=== PATIENT | female | born 1945 | race Caucasian/White ===

== ENCOUNTER 2018-10-06 09:22 | Inpatient (IN) | payer OTHER, MEDICAID ==
[~2018-10-06] VITALS: Ht 165.1 cm; Wt 63.5 kg
[2018-10-06] MEDS ORDERED: NORVASC5 MG PO (10:01)
[2018-10-06] MEDS ORDERED: ARICEPT23 MG PO (10:01)
[2018-10-06] MEDS ORDERED: NAMENDA XR7 MG PO (10:01)
[2018-10-06] MEDS ORDERED: ZOLOFT50 MG PO (10:01)
[2018-10-06] MEDS ORDERED: FLUTICASONE PRO16 GM NASAL (10:02)
[2018-10-06] MEDS ORDERED: VITAMIN D250000 UNIT PO (10:02)
--- NOTE | 2018-10-06 10:20 | NUR ---
Pt's adult diaper saturated upon arrival. Pt was changed and cleaned. Wet linen was removed. Dry blue pads placed beneath pt, and dry adult diaper placed on pt. Pt has redness to coccyx and groin area.
[2018-10-06 10:40] LABS: BASOPHILS 0.1 % (0-2); EOSINOPHILS 0.1 % (0-7); HEMATOCRIT 37.7 % (36.0-48.0); HEMOGLOBIN 12.5 g/dL (12-16); IMMATURE GRANULOCYTES 0.2 % (0-5); LYMPHOCYTES 8.8 % (15-50); MCH 30.9 pg (26.0-34.0); MCHC 33.2 g/dL (31.0-37.0); MCV 93.3 fL (80.0-100.0); MEAN PLATELET VOLUME 11.2 fL (7.4-10.4); MONOCYTES 4.7 % (2-11); NEUTROPHILS 86.1 % (40-80); PLATELET COUNT 217 10x3/uL (130-400); RBC 4.04 10x6/uL (4.00-5.40)
[2018-10-06 11:01] LABS: APPEARANCE CLEAR (CLEAR); COLOR YELLOW (YELLOW); GLUCOSE NEGATIVE (NEGATIVE); KETONE NEGATIVE (NEGATIVE); NITRITE NEGATIVE (NEGATIVE); PROTEIN TRACE mg/dL (NEGATIVE); UROBILINOGEN NORMAL (NORMAL)
[2018-10-06 11:02] LABS: BILIRUBIN NEGATIVE (NEGATIVE)
[2018-10-06 11:03] LABS: BACTERIA FEW /hpf (NONE SEEN); RED CELLS - URINE 0-5 /hpf (0-5); WHITE CELLS - URINE 0-5 /hpf (0-5)
[2018-10-06 11:09] LABS: ALBUMIN 2.8 g/dL (3.4-5.0); ANION GAP 16.6 mmol/L (8-16); BILIRUBIN - TOTAL 0.36 mg/dL (0.2-1.3); CALCIUM 8.1 mg/dL (8.5-10.1); CARBON DIOXIDE 23.9 mmol/L (21.0-32.0); POTASSIUM - SERUM 3.5 mmol/L (3.5-5.1)
[2018-10-06 11:13] LABS: THYROID STIMULATING HORMONE 1.62 uIU/mL (0.36-3.74)
--- NOTE | 2018-10-06 11:23 | NUR ---
Pt resting with family at bedside. Pt respirations even and unlabored. Pt shows no signs of distress at this time.
--- NOTE | 2018-10-06 12:45 | MORECARE ---
CASE MANAGEMENT DISCHARGE SUMMARY PATIENT: ISIDRA EDMOND UNIT: [id number] ADM DATE: 10/06/18 AGE: 73 : 43 SEX: F ROOM/BED: D.2224 AUTHOR: NAEL CASTILLO PHYSICIAN: REFERRING PHYSICIAN: RADHA ORTEGA MD DATE OF SERVICE: 10/06/18 Discharge Plan Patient Name: ISIDRA EDMOND Facility: [facility]:[place] : 1945 Planned Disposition: Home Anticipated Discharge Date: 10/09/18 Discharge Date: Expected LOS: 3 Initial Reviewer: [email or web address] Initial Review Date: 10/06/2018 Generated: 10/06/18 1:45 pm Patient Name: ISIDRA EDMOND Page 96666 at 1245 All edits/amendments must be made on the electronic document DICTATION DATE: 10/06/18 1245 ARMATURE AND ROTOR WINDER: EZEQUIEL 10/06/18 1245 RPT#: [id number] DC DATE: STATUS: ADM IN [facility] [address] [place] [address] END OF REPORT
--- NOTE | 2018-10-06 12:45 | NUR ---
Siomara completed at 1235.
--- NOTE | 2018-10-06 12:53 | MORECARE ---
CASE MANAGEMENT DISCHARGE SUMMARY PATIENT: ISIDRA BAILEY UNIT: [id number] ADM DATE: 10/06/18 AGE: 73 : 43 SEX: F ROOM/BED: D.2224 AUTHOR: NAEL CASTILLO PHYSICIAN: REFERRING PHYSICIAN: RADHA ORTEGA MD DATE OF SERVICE: 10/06/18 Discharge Plan Patient Name: ISIDRA BAILEY Facility: [facility]:[place] : 1945 Planned Disposition: Home Anticipated Discharge Date: 10/09/18 Discharge Date: Expected LOS: 3 Initial Reviewer: [email or web address] Initial Review Date: 10/06/2018 Generated: 10/06/18 1:52 pm DCP- Discharge Planning Updated by [email or web address]: Vonnie Meadows on 10/06/18 11:[address] Patient Name: ISIDRA BAILEY Admission Status: ER Accout number: [id number] Admission Date: 10-06-2018 : 1945 Admission Diagnosis: Attending: RADHA CARRANZA Current LOS: 1 Anticipated DC Date: 10-09-2018 Planned Disposition: Home Primary Insurance: MEDICARE PART A ONLY Discharge Planning Comments: CM met with patient, spouse, cg, and multiple other family members to complete initial dc planning assessment. CM educated them all on the CM role and verbal consent given by patient to complete assessment. Patient lives at home with her . She has a cg provided by [employer] that lives with the patient 08/03. The cg's name is Rima Olvera @ [phone]. At discharge the patient will return home with her and her live in . Spouse and other family members feels this is a safe discharge. Patient has alzheimers but her mental status was worse then usual this morning. They reported the patient is seen by [facility] as well. No other community resources. CM discussed availability of home health, rehab services, and medical equipment. Family denied known discharge needs at this time. CM will continue to follow and will assist as needed with dc plans/needs. Applications Packager: Vonnie Meadows RN, [facility] DCPIA - Discharge Planning Initial Assessment Updated by [email or web address]: Vonnie Meadows on 10/06/18 12:45 pm * Is the patient Alert and Oriented? No * PCP Dr. Robles * Pharmacy [facility] * Preadmission Environment Home with Family * ADLs Partial Dependent * Partial ADLs (Assistance needed) Ambulation Bathing Dressing Medication Management Toileting Transfers * Equipment Bedside [facility] Bed Rolling Walker Wheelchair * List name and contact numbers for known caregivers / representatives who currently or will assist patient after discharge: Jesus Bailey - [facility] [place] [phone] Rima Esparza - 08/03 live in [facility] [phone] * Verbal permission to speak to the caregivers and representatives has been obtained from the patient. Yes * Community resources currently utilized Other Private Duty Care * Please name any agencies selected above. [facility] [place] - Employer of [employer]ima who provides the 08/03 care. * Additional services required to return to the preadmission environment? No * Can the patient safely return to the preadmission environment? Yes * Has this patient been hospitalized within the prior 30 days at any hospital? No Last DP export: 10/06/18 11:45 a Patient Name: ISIDRA BAILEY Page 69894 at 1253 All edits/amendments must be made on the electronic document DICTATION DATE: 10/06/181251 SUPERINTENDENT GENERAL: EZEQUIEL 10/06/181251 RPT#: [id number] DC DATE: STATUS: ADM IN [facility] [address] [place] [address] END OF REPORT
--- NOTE | 2018-10-06 13:10 | NUR ---
PT TRANSPORTED TO FLOOR WITH ISOLATION PRECAUTION DUE TO PT BEING TX FOR FLU. NOTE PT FLU SWAB WAS NEGATIVE, HOWEVER SINCE BEING TX FOR FLU FOLLOWED ISOLATION PROTOCOL WITH MASK AND GOWN ON PT. NURSE NOTIFIED OF THIS AT REPORT AND TRANSPORT.
--- NOTE | 2018-10-06 13:32 | NUR ---
ARRIVED TO ROOM 2224 VIA STRETCHER AWAKE AND ALERT TO NAME ONLY. RESP EVEN AND UNLABORED WITH 02 IN USE VIA N/C. NO PAIN OR DISCOMFORT NOTED OR VOICED. INCONT OF BOWEL AND BLADDER. MEDIUM BM NOTED. PT UNABLE TO WORK CALL LIGHT SYSTEM HAS AQUATICS COORDINATOR AT BEDSIDE. C/L IN REACH.
[2018-10-06 17:11] VITALS: BP 133/66
--- NOTE | 2018-10-06 19:30 | NUR ---
ADMISSION ASSESSMENT COMPLETED CAREGIVER AT BEDSIDE, PT UNABLE TO ANSWER QUESTIONS DUE TO MENTAL STATUS, BLIND ABLE TO FOLLOW SOME COMMANDS, IV INFUSING WITHOUT DIFFICULTY O2 VIA N/C AT 2 L, RESP UNLABOARED LUNGS DEMINISHED, INCONTIENT OF BOWEL AND BLADDER BED CHANGED, CALL LIGHT IN REACH
[2018-10-06 20:00] VITALS: BP 151/72
[2018-10-06 23:21] VITALS: BP 133/66; BMI 23.3
[2018-10-07] VITALS: BP 167/87
[2018-10-07 04:00] VITALS: BP 133/63
[2018-10-07 07:15] LABS: HEMATOCRIT 34.7 % (36.0-48.0); HEMOGLOBIN 11.8 g/dL (12-16); LYMPHOCYTES 7.5 % (15-50); MCH 31.4 pg (26.0-34.0); MCV 92.3 fL (80.0-100.0); NEUTROPHILS 91.5 % (40-80); PLATELET COUNT 183 10x3/uL (130-400); RBC 3.76 10x6/uL (4.00-5.40); RDW 12.6 % (11.5-14.5); WBC 8.3 10x3/uL (4.8-10.8)
[2018-10-07 07:30] LABS: ALBUMIN 2.4 g/dL (3.4-5.0); ANION GAP 14.6 mmol/L (8-16); BILIRUBIN - TOTAL 0.32 mg/dL (0.2-1.3); CALCIUM 7.9 mg/dL (8.5-10.1); CARBON DIOXIDE 24.6 mmol/L (21.0-32.0); CREATININE - SERUM 0.8 mg/dL (0.6-1.3); MAGNESIUM - SERUM 1.7 mg/dL (1.8-2.4); POTASSIUM - SERUM 3.2 mmol/L (3.5-5.1); PROTEIN - SERUM 6.5 g/dL (6.4-8.2)
[2018-10-07 08:40] VITALS: BP 139/59
--- NOTE | 2018-10-07 09:53 | NUR ---
Rehab Note- Acute Inpatient Rehab prescreen order received. The patient has pending PT & ST Evals. WIll follow and visit with the patient & family at this time. Thank you for this referral! More Amin RN CLinical Liaison, [facility] Rehab
[2018-10-07 12:50] VITALS: BP 120/50
[2018-10-07 13:49] VITALS: Ht 165.1 cm; Wt 63.5 kg
[2018-10-07 17:48] VITALS: BP 135/64
--- NOTE | 2018-10-07 18:45 | NUR ---
PATIENT IN BED WITH EYES OPEN AND NO COMPLAINTS OR SIGNS OF DISTRESS AT THIS TIME. IV INTACT. CALL LIGHT WITHIN REACH.
--- NOTE | 2018-10-07 19:15 | NUR ---
RECEIVED CARE FROM DAY NURSE. LYING IN BED WITH GAS STATION SUPERVISOR AT SIDE. NO NEEDS VOICED AT THIS TIME. IV INFUSING PER ORDER TO PATENT LEFT FA.
[2018-10-07 20:00] VITALS: BP 115/58
[2018-10-08] VITALS: BP 137/70
[2018-10-08 04:00] VITALS: BP 136/61
[2018-10-08 06:48] LABS: BASOPHILS 0 % (0-2); EOSINOPHILS 1.5 % (0-7); HEMATOCRIT 32.3 % (36.0-48.0); HEMOGLOBIN 10.3 g/dL (12-16); LYMPHOCYTES 25.8 % (15-50); MCH 30.1 pg (26.0-34.0); MCHC 31.9 g/dL (31.0-37.0); MEAN PLATELET VOLUME 11.3 fL (7.4-10.4); MONOCYTES 6.3 % (2-11); NEUTROPHILS 66.4 % (40-80); PLATELET COUNT 199 10x3/uL (130-400); RBC 3.42 10x6/uL (4.00-5.40); RDW 13.5 % (11.5-14.5)
[2018-10-08 06:54] LABS: ALBUMIN 2.1 g/dL (3.4-5.0); ANION GAP 10.3 mmol/L (8-16); BILIRUBIN - TOTAL 0.27 mg/dL (0.2-1.3); CALCIUM 8.1 mg/dL (8.5-10.1); CARBON DIOXIDE 24.7 mmol/L (21.0-32.0); CREATININE - SERUM 0.8 mg/dL (0.6-1.3); PROTEIN - SERUM 6.5 g/dL (6.4-8.2)
[2018-10-08 06:57] LABS: MAGNESIUM - SERUM 2.2 mg/dL (1.8-2.4)
[2018-10-08 07:02] LABS: MCV 94.4 fL (80.0-100.0); WBC 5.9 10x3/uL (4.8-10.8)
--- NOTE | 2018-10-08 07:15 | NUR ---
PT IS RESTING IN BED WITH EYES CLOSED. RESPIRATIONS ARE EVEN AND UNLABORED. PT IS EASILY AROUSED WITH VERBAL STIMULATION. THERE IS A CAREGIVER AT PT BEDSIDE. PT WILL NOT COMMUNICATE AT THIS TIME. THIS IS NOT OUT OF PT "NORMAL" PER PT CAREGIVER. PT IS REPOSITIONED WITH USE OF PILLOWS FOR SUPPORT. BED IS IN THE LOWEST POSITION. CALL LIGHT AND BEDSIDE TABLE ARE WITHIN REACH. WILL CONT TO MONITOR.
[2018-10-08 09:00] VITALS: BP 110/56
[2018-10-08 14:44] VITALS: BP 148/71
--- NOTE | 2018-10-08 14:59 | NUR ---
SPOKE WITH ALONSO IN LAB. SPECIMEN FROM IS STILL AVAILABLE FOR CULTURE. WILL USE FOR CULTURE.
[2018-10-08 18:20] VITALS: BP 128/74
--- NOTE | 2018-10-08 19:15 | NUR ---
RECEIVED CARE FROM DAY NURSE. LYING IN BED WITH CAREGIVER AT SIDE. NO NEEDS VOICED AT THIS TIME. IV INFUSING PER ORDER TO LEFT FA. CALL LIGHT AT CAREGIVERS SIDE.
[2018-10-08 19:50] VITALS: BP 141/55
[2018-10-09] VITALS: BP 158/88
--- NOTE | 2018-10-09 02:33 | NUR ---
I AGREE WITH CARBON ACCOUNTANT ASSESSMENT
--- NOTE | 2018-10-09 02:41 | NUR ---
IV IN LEFT FA SWOLLEN AND PARTIALLY DISLOADGED. DC'D WITH TIP INTACT. RESITED TO RIGHT FA. 2O GUAGE X1 STICK WITH GOOD BLOOD RETURN NOTED.
[2018-10-09 04:00] VITALS: BP 150/60
[2018-10-09 06:45] LABS: BASOPHILS 0.3 % (0-2); EOSINOPHILS 3.5 % (0-7); HEMATOCRIT 30.5 % (36.0-48.0); IMMATURE GRANULOCYTES 0.3 % (0-5); LYMPHOCYTES 32.7 % (15-50); MCH 30.7 pg (26.0-34.0); MCHC 32.8 g/dL (31.0-37.0); MCV 93.6 fL (80.0-100.0); NEUTROPHILS 55.2 % (40-80); PLATELET COUNT 196 10x3/uL (130-400); RBC 3.26 10x6/uL (4.00-5.40)
[2018-10-09 06:47] LABS: ALBUMIN 1.9 g/dL (3.4-5.0); BILIRUBIN - TOTAL 0.31 mg/dL (0.2-1.3); CALCIUM 7.8 mg/dL (8.5-10.1); CARBON DIOXIDE 22.3 mmol/L (21.0-32.0); CREATININE - SERUM 0.8 mg/dL (0.6-1.3); MAGNESIUM - SERUM 1.8 mg/dL (1.8-2.4); PROTEIN - SERUM 6.1 g/dL (6.4-8.2); WBC 3.8 10x3/uL (4.8-10.8)
[2018-10-09 06:49] LABS: ANION GAP 13.6 mmol/L (8-16); POTASSIUM - SERUM 3.9 mmol/L (3.5-5.1)
--- NOTE | 2018-10-09 08:39 | NUR ---
TAMIFLU IS NOT AVAILABLE AT THIS TIME ON FLOOR. PHARMACY NOTIFIED. WILL WAIT FOR ROLLED OATS MILL OPERATOR FOR TAMIFLU.
[2018-10-09 09:41] VITALS: BP 147/79
--- NOTE | 2018-10-09 10:23 | NUR ---
PT REPOSITIONED TO RIGHT SIDE. PILLOW USED FOR SUPPORT. CAREGIVER ASSISTED WITH PT REPOSITIONING.
--- NOTE | 2018-10-09 12:19 | NUR ---
PT IS SITTING IN BEDSIDE CHAIR. ALERT. RESPIRATIONS ARE EVEN AND UNLABORED. CAREGIVER IS AT BEDSIDE.
[2018-10-09 14:08] VITALS: BP 139/79
--- NOTE | 2018-10-09 16:29 | NUR ---
PT REPOSITIONED USING PILLOWS FOR SUPPORT. CAREGIVER AT BEDSIDE. PT WITH INCONTINCENCE EPISODE. PT IS CLEANED AND NEW LINENS PLACED. BED IS IN THE LOWEST POSITION. CALL LIGHT AND BEDSIDE TABLE ARE WITHIN REACH. PT AND PT CAREGIVER DENY FURTHER NEEDS AT THIS TIME. WILL CONT TO MONITOR.
[2018-10-09 18:25] VITALS: BP 151/83
--- NOTE | 2018-10-09 19:15 | NUR ---
RECEIVED CARE FROM DAY NURSE. LYING IN BED WITH CAREGIVER AT SIDE. IV INFUSING PER ORDER TO PATENT RIGHT FA. CLEANED AT THIS TIME DUE TO BEING WET. NO OTHER NEEDS VOICED AT THIS TIME.
[2018-10-10] VITALS: BP 148/70
[2018-10-10 04:00] VITALS: BP 153/72
[2018-10-10 08:23] VITALS: BP 147/66
[2018-10-10 09:52] LABS: BASOPHILS 0.6 % (0-2); HEMATOCRIT 33.9 % (36.0-48.0); IMMATURE GRANULOCYTES 0.6 % (0-5); LYMPHOCYTES 31.6 % (15-50); MCH 30.1 pg (26.0-34.0); MCHC 32.4 g/dL (31.0-37.0); MCV 92.6 fL (80.0-100.0); MEAN PLATELET VOLUME 10.4 fL (7.4-10.4); MONOCYTES 8.8 % (2-11); NEUTROPHILS 54.4 % (40-80); PLATELET COUNT 221 10x3/uL (130-400); RBC 3.66 10x6/uL (4.00-5.40); WBC 3.5 10x3/uL (4.8-10.8)
[2018-10-10 10:15] LABS: ALBUMIN 2.2 g/dL (3.4-5.0); ANION GAP 11.3 mmol/L (8-16); BILIRUBIN - TOTAL 0.29 mg/dL (0.2-1.3); CALCIUM 8.4 mg/dL (8.5-10.1); CARBON DIOXIDE 27.3 mmol/L (21.0-32.0); CREATININE - SERUM 0.8 mg/dL (0.6-1.3); POTASSIUM - SERUM 3.6 mmol/L (3.5-5.1); PROTEIN - SERUM 6.7 g/dL (6.4-8.2)
--- NOTE | 2018-10-10 11:11 | NUR ---
Rehab Note- THe patient is a total assist at home, she is not a an acute inpatient rehab candidate. Thank you for this referral! More Amin RN Clinical Liaison, [facility] Rehab
[2018-10-10 12:16] VITALS: BP 137/64
--- NOTE | 2018-10-10 13:39 | NUR ---
PATIENT ESCORTED OUT OF HOSPITAL VIA WC AT THIS TIME BY ACCOUNT SUPPORT MANAGER WITH PERSONAL BELONGINGS TO PRIVATE VEHICLE.
--- NOTE | 2018-10-10 14:15 | MORECARE ---
CASE MANAGEMENT DISCHARGE SUMMARY PATIENT: ISIDRA BAILEY UNIT: [id number] ADM DATE: 10/06/18 AGE: 73 : 43 SEX: F ROOM/BED: D.2224 AUTHOR: JONATHANDOC PHYSICIAN: REFERRING PHYSICIAN: RADHA ORTEGA MD DATE OF SERVICE: 10/10/18 Discharge Plan Patient Name: ISIDRA BAILEY Facility: [facility]:[place] : 1945 Planned Disposition: Home Anticipated Discharge Date: 10/09/18 Discharge Date: 10/10/2018 Expected LOS: 3 Initial Reviewer: [email or web address] Initial Review Date: 10/06/2018 Generated: 10/10/18 3:14 pm Comments DCP- Discharge Planning Updated by [email or web address]: Nelly Patti on 10/10/18 1:[address] Discharge orders received, however she was already discharged before I could see her. Initial note states she has caregiver 08/03 and denied discharge needs. DCP- Discharge Planning Updated by [email or web address]: Vonnie Meadows on 10/06/18 11:[address] Patient Name: ISIDRA BAILEY Admission Status: ER Accout number: [id number] Admission Date: 10-06-2018 : 1945 Admission Diagnosis: Attending: RADHA CARRANZA Current LOS: 1 Anticipated DC Date: 10-09-2018 Planned Disposition: Home Primary Insurance: MEDICARE PART A ONLY Discharge Planning Comments: CM met with patient, spouse, cg, and multiple other family members to complete initial dc planning assessment. CM educated them all on the CM role and verbal consent given by patient to complete assessment. Patient lives at home with her . She has a cg provided by [employer] that lives with the patient 08/03. The cg's name is Rima Olvera @ [phone]. At discharge the patient will return home with her and her live in . Spouse and other family members feels this is a safe discharge. Patient has alzheimers but her mental status was worse then usual this morning. They reported the patient is seen by [facility] as well. No other community resources. CM discussed availability of home health, rehab services, and medical equipment. Family denied known discharge needs at this time. CM will continue to follow and will assist as needed with dc plans/needs. Automotive Mechanical Engineer: Vonnie Meadows RN, [facility] [place] DCPIA - Discharge Planning Initial Assessment Updated by [email or web address]: Vonnie Meadows on 10/06/18 12:45 pm * Is the patient Alert and Oriented? No * PCP Dr. Robles * Pharmacy [facility] * Preadmission Environment Home with Family * ADLs Partial Dependent * Partial ADLs (Assistance needed) Ambulation Bathing Dressing Medication Management Toileting Transfers * Equipment Bedside [facility] Bed Rolling Walker Wheelchair * List name and contact numbers for known caregivers / representatives who currently or will assist patient after discharge: Jesus Bailey - [facility] [place] [phone] Rima Esparza - 08/03 live in [facility] [phone] * Verbal permission to speak to the caregivers and representatives has been obtained from the patient. Yes * Community resources currently utilized Other Private Duty Care * Please name any agencies selected above. [facility] [place] - Employer of [employer] who provides the 08/03 care. * Additional services required to return to the preadmission environment? No * Can the patient safely return to the preadmission environment? Yes * Has this patient been hospitalized within the prior 30 days at any hospital? No Last DP export: 10/06/18 11:52 a Patient Name: ISIDRA BAILEY Page 24002 at 1415 All edits/amendments must be made on the electronic document DICTATION DATE: 10/10/181413 SEWING MACHINE ASSEMBLER: EZEQUIEL 10/10/181413 RPT#: [id number] DC DATE:10/10/18 STATUS: DIS IN [facility] [address] [place] [address] END OF REPORT
--- NOTE | 2018-10-11 11:18 | EC ---
PATIENT:ISIDRA EDMOND DATE OF SERVICE: 10/06/18 SEX: F MEDICAL RECORD: [id number] DATE OF : [birth year] LOCATION:D.MS [id number] AGE OF PATIENT: 73 ADMISSION DATE: 10/06/18 REFERRING PHYSICIAN: INTERPRETING PHYSICIAN: HALLEY VIZCARRA MD ECHOCARDIOGRAM REPORT ECHO CHARGES 4 ECHO COMPLETE Date: 10/07/18 CLINICAL DIAGNOSIS: FUO/ALTERED MENTAL STATUS/CONFUSION, HX OF HTN ECHOCARDIOGRAPHIC MEASUREMENTS (adult normal given) AC root (d.<3.7cm) 3.5 cm LV Septum d (<1.2 cm> 1.5 cm Valve Excursion 1.8 cm LV Septum (systole) 1.7 cm Left Atria (s.<4.0cm> 3.6 cm LVPW d(<1.2cm) 1.6 cm RV (d.<2.3cm) 3.4 cm LVPW (sytole) 2.0 cm LV diastole(<5.6CM) 4.3 cm MV E-F(>70mm/sec) cm LV systole 3.0 cm LVOT Diameter 1.6 cm MV exc.(>10mm) cm Est.ejection fraction (50-75%) % DOPPLER: LVIT cm/sec A 111.0cm/sec E 70.0 cm/sec LA cm/sec RVSP 30 mmHg LVOT 101 cm/sec AOP1/2T m/s Asc. Ao 143 cm/sec RVOT cm/sec RA cm/sec PA cm/sec AV Gradient Peak 8.22 mmHg AV Mean 4.43 mmHg AV Area 1.8 cm MV Gradient Peak 5.63 mmHg MV Mean 1.61 mmHg MV Area cm COMMENTS: Materials Scheduler: 2 MOSES BELTRÁN Resource Forester: 1 Dr. Vizcarra TAPE# PACS Pericardial Effusion N DATE OF SERVICE: FINDINGS: 1. Left ventricular chamber size is within normal limits. Left ventricular systolic function is normal. Overall ejection fraction estimated at 55%. 2. Left atrium, right atrium, and right ventricle chamber sizes are within normal limits. 3. Valvular structures have normal structure and motion. 4. Doppler interrogation reveals mild tricuspid regurgitation, no other valvular insufficiency, or stenosis. ECHOCARDIOGRAM REPORT [id number] ISIDRA EDMOND 5. No evidence of pericardial effusion or left ventricular thrombus. TRANSINT:[id number] Voice Confirmation ID: [id number] DOCUMENT ID: [id number] HALLEY VIZCARRA MD at 1118 CC: [id number] DICTATION DATE: 10/07/18 1410 BIODIESEL PROCESSING TECHNICIAN: 10/07/189 DIS IN 10/10/18 [place] [id number] [place] [id number]
--- NOTE | 2018-10-12 16:51 | MORECARE ---
CASE MANAGEMENT DISCHARGE SUMMARY PATIENT: ISIDRA BAILEY UNIT: [id number] ADM DATE: 10/06/18 AGE: 73 : 43 SEX: F ROOM/BED: D.2224 AUTHOR: JONATHANDOC PHYSICIAN: REFERRING PHYSICIAN: RADHA ORTEGA MD DATE OF SERVICE: 10/12/18 Discharge Plan Patient Name: ISIDRA BAILEY Facility: [facility]:[place] : 1945 Planned Disposition: Home Anticipated Discharge Date: 10/09/18 Discharge Date: 10/10/2018 Expected LOS: 3 Initial Reviewer: [email or web address] Initial Review Date: 10/06/2018 Generated: 10/12/18 5:51 pm Comments DCP- Discharge Planning Updated by [email or web address]: Nellyjuanita Armstrong on 10/10/18 1:[address] Discharge orders received, however she was already discharged before I could see her. Initial note states she has caregiver 08/03 and denied discharge needs. DCP- Discharge Planning Updated by [email or web address]: Vonnie Meadows on 10/06/18 11:[address] Patient Name: ISIDRA BAILEY Admission Status: ER Accout number: [id number] Admission Date: 10-06-2018 : 1945 Admission Diagnosis: Attending: RADHA CARRANZA Current LOS: 1 Anticipated DC Date: 10-09-2018 Planned Disposition: Home Primary Insurance: MEDICARE PART A ONLY Discharge Planning Comments: CM met with patient, spouse, cg, and multiple other family members to complete initial dc planning assessment. CM educated them all on the CM role and verbal consent given by patient to complete assessment. Patient lives at home with her . She has a cg provided by [employer] that lives with the patient 08/03. The cg's name is Rima Olvera @ [phone]. At discharge the patient will return home with her and her live in . Spouse and other family members feels this is a safe discharge. Patient has alzheimers but her mental status was worse then usual this morning. They reported the patient is seen by [facility] as well. No other community resources. CM discussed availability of home health, rehab services, and medical equipment. Family denied known discharge needs at this time. CM will continue to follow and will assist as needed with dc plans/needs. Manhole Stripper: Vonnie Meadows RN, [facility] DCPIA - Discharge Planning Initial Assessment Updated by [email or web address]: Vonnie Meadows on 10/06/18 12:45 pm * Is the patient Alert and Oriented? No * PCP Dr. Robles * Pharmacy [facility] * Preadmission Environment Home with Family * ADLs Partial Dependent * Partial ADLs (Assistance needed) Ambulation Bathing Dressing Medication Management Toileting Transfers * Equipment Bedside [facility] Bed Rolling Walker Wheelchair * List name and contact numbers for known caregivers / representatives who currently or will assist patient after discharge: Jesus Bailey - [facility] [place]note 2] [phone] Rima Esparza - 08/03 live in [facility] [phone] * Verbal permission to speak to the caregivers and representatives has been obtained from the patient. Yes * Community resources currently utilized Other Private Duty Care * Please name any agencies selected above. [facility] [place] - Employer of [employer] who provides the 08/03 care. * Additional services required to return to the preadmission environment? No * Can the patient safely return to the preadmission environment? Yes * Has this patient been hospitalized within the prior 30 days at any hospital? No Last DP export: 10/10/18 1:14 p Patient Name: ISIDRA BAILEY Page 25803 at 1651 All edits/amendments must be made on the electronic document DICTATION DATE: 10/12/181649 DOUBLING MACHINE OPERATOR: EZEQUIEL 10/12/181649 RPT#: [id number] DC DATE:10/10/18 STATUS: DIS IN [facility] [address] [place] [address] END OF REPORT
== END 2018-10-10 13:51 | disposition home or self-care (01) | DRG 689 ==
LOC: D.ER 09:22 → D.MS 11:40 → D.EDHOLD 11:40 → D.MS 12:09
PROVIDERS: Emergency Medicine; ADMIT Family Medicine Adult Medicine
DX: N39.0 Urinary tract infection, site not specified (principal); R40.2213 Coma scale, best verbal response, none, at hospital admission; R50.9 Fever, unspecified; R41.82 Altered mental status, unspecified; G30.9 Alzheimer's disease, unspecified; F02.80 Dementia in other diseases classified elsewhere, unspecified severity, without behavioral disturbance, psychotic disturbance, mood disturbance, and anxiety; H54.7 Unspecified visual loss; I10 Essential (primary) hypertension; E11.9 Type 2 diabetes mellitus without complications; E87.6 Hypokalemia